=== PATIENT | male | born 1970 | race Caucasian/White ===

== ENCOUNTER 2023-06-12 08:14 | Outpatient (CLI) | payer OTHER, SELFPAY | END 2023-06-12 08:15 | disposition home or self-care (01) | PROVIDERS: PCP Family Medicine; Visit Provider Nurse Practitioner Family | DX: E11.621 Type 2 diabetes mellitus with foot ulcer (principal); L97.526 Non-pressure chronic ulcer of other part of left foot with bone involvement without evidence of necrosis; E66.01 Morbid (severe) obesity due to excess calories; Z68.43 Body mass index [BMI] 50.0-59.9, adult; Z79.52 Long term (current) use of systemic steroids; F17.200 Nicotine dependence, unspecified, uncomplicated; Z71.6 Tobacco abuse counseling; Z79.4 Long term (current) use of insulin | CPT/HCPCS: 11043; 11046; 87070; 87186; 99203 ==

== ENCOUNTER 2023-06-19 09:10 | Outpatient (CLI) | payer OTHER, SELFPAY | END 2023-06-19 09:11 | disposition home or self-care (01) | LOC: WOUND 09:12 | PROVIDERS: PCP Family Medicine; Visit Provider Nurse Practitioner Family | DX: E11.621 Type 2 diabetes mellitus with foot ulcer (principal); L97.526 Non-pressure chronic ulcer of other part of left foot with bone involvement without evidence of necrosis; E11.622 Type 2 diabetes mellitus with other skin ulcer; L97.226 Non-pressure chronic ulcer of left calf with bone involvement without evidence of necrosis; T23.322A Burn of third degree of single left finger (nail) except thumb, initial encounter; X08.8XXA Exposure to other specified smoke, fire and flames, initial encounter; F17.290 Nicotine dependence, other tobacco product, uncomplicated; Z79.4 Long term (current) use of insulin; Z79.84 Long term (current) use of oral hypoglycemic drugs | CPT/HCPCS: 11043; 16020; 99212 ==

== ENCOUNTER 2023-07-02 14:10 | Outpatient (CLI) | payer OTHER, SELFPAY | END 2023-07-02 14:11 | disposition home or self-care (01) | LOC: WOUND 14:10 | PROVIDERS: PCP Family Medicine; Visit Provider Nurse Practitioner Family | DX: E11.621 Type 2 diabetes mellitus with foot ulcer (principal); L97.526 Non-pressure chronic ulcer of other part of left foot with bone involvement without evidence of necrosis; L97.222 Non-pressure chronic ulcer of left calf with fat layer exposed; T23.022A Burn of unspecified degree of single left finger (nail) except thumb, initial encounter; Z79.4 Long term (current) use of insulin; Z79.84 Long term (current) use of oral hypoglycemic drugs | CPT/HCPCS: 11043; 99212 ==

== ENCOUNTER 2023-07-02 15:31 | Emergency (ER) | payer OTHER, SELFPAY ==
[2023-07-02 15:47] VITALS: BP 130/72; PULSE 73; RESP 20; TEMP 37.3; O2SAT 90; BMI 56.5
[2023-07-02 16:14] LABS: Lactate Sepsis w/Reflex* 2.5 mmol/L (0.5-1.9)
[2023-07-02] MEDS: MORPHINE 4 MG/ML INJ IVP (16:15)
[2023-07-02 16:17] LABS: Basophils Absolute Auto 0.01 K/uL (0.00-0.30); Basophils Percent Auto 0.1 % (0.0-3.0); Eosinophils Absolute Auto 0.09 K/uL (0.00-0.50); Eosinophils Percent Auto 0.9 % (0.0-7.0); Hematocrit 32.3 % (37.0-53.0); Hemoglobin* 9.8 gm/dL (13.5-17.5); Immature Granulocytes Abs Auto 0.08 K/uL (0.00-0.30); Immature Granulocytes Pct Auto 0.8 %; Lymphocytes Percent Auto 10.8 % (20-44); Mean Corpuscular HGB Conc 30 gm/dL (32-36); Mean Corpuscular Hemoglobin 28 pg (26-34); Mean Corpuscular Volume 93 fL (80-100); Monocytes Percent Auto 4.8 % (0.0-11.0); Neutrophils Percent Auto 82.6 % (42.0-72.0); Platelet Count* 269 K/uL (140-440); RDW Coefficient of Variation % 16.5 % (11.5-15.5); Red Blood Count 3.48 m/uL (4.30-5.90); White Blood Count* 10.34 K/uL (4.50-11.00)
[2023-07-02 16:18] LABS: Slide Review Reflex No
[2023-07-02 16:30] VITALS: O2SAT 94
--- NOTE | 2023-07-02 16:30 | ED.NURSE ---
Patient oxygen saturations at 87% on room air, notified he uses oxygen at home. Applied 2 L NC and saturations increased to 94%. Morphine administered for pain, has had before with no concerns. Patient stated he has a spinal stimulator and cannot go into an MRI. Updated provider and imaging department.
[2023-07-02 16:31] VITALS: O2SAT 94
[2023-07-02] MEDS: ACETAMINOPHEN 500 MG TABLET 1000 MG PO (16:42)
[2023-07-02 16:46] LABS: Chloride* 92 mmol/L (96-114)
[2023-07-02 16:47] LABS: Potassium* 3.9 mmol/L (3.6-5.1); Sodium* 134 mmol/L (135-149)
[2023-07-02 16:49] LABS: Creatinine* 0.7 mg/dL (0.5-1.5); Est. Creatinine Clearance* 112.66; Estimated Glomerular Filt Rate 112 ml/min
[2023-07-02 16:50] LABS: Anion Gap 6 mEq/L (7-15); Blood Urea Nitrogen* 9 mg/dL (7-30); Carbon Dioxide* 36 mmol/L (20-32)
[2023-07-02 16:51] LABS: Calcium* 9.2 mg/dL (8.4-10.6); Glucose* 173 mg/dL (60-115)
[2023-07-02 17:05] LABS: C Reactive Protein* 19.7 mg/dL (0.5-1.0)
[2023-07-02 17:08] LABS: Procalcitonin* 0.17 ng/mL (<0.50)
--- NOTE | 2023-07-02 17:13 | ED_ITS ---
HPI - General Adult General Date Seen: 07/02/23 Chief complaint: Skin/Abscess/Foreign Body Stated complaint: Infected wounds on feet Time Seen by Provider: 07/02/23 15:34 Source: patient and old records reviewed Mode of arrival: ambulatory Limitations: no limitations History of Present Illness HPI narrative: Patient is a 53-year-old with poor medical management who is sent here from wound clinic. He had initially been seen there after referral from Podiatry on June 12 for a chronic wound of his left foot. He was initially on Augmentin, had ostensibly been switched to Bactrim but it is unclear whether that was ever started. Initially when he was seen there was matted debris including CT for on the wound. He has not followed through with good wound care, dressing changes, etcetera nor has he followed through with clinic visits or MRI. He presented to Wound Clinic today and was noted to have worsening appearance of wound with foul odor, wet gangrene and worsening tracking of the wound. They talked with our rope machine setter here who recommended transfer to a tertiary facility for operative debridement and possible amputation. He complains of pain in the left leg, he refused wheelchair transfer from the wound clinic up to the ER, requiring med of and transport so that he could ?smoke a joint between wound clinic and the ER. He is on chronic narcotics. He denies systemic complaints such as fevers. He has chronic pain in both legs secondary to neuropathy but says that the left leg is worse. His only request here is for pain medication. Related Data Home Medications Medication Instructions Recorded Confirmed albuterol sulfate 90 mcg/actuation 2 puff inhalation Q6H PRN dyspnea 07/02/23 07/02/23 aerosol inhaler duloxetine 60 mg capsule,delayed 60 mg PO DAILY 07/02/23 07/02/23 release insulin glargine 100 unit/mL (3 40 unit subcut QPM 07/02/23 07/02/23 mL) subcutaneous pen (Lantus Solostar U-100 Insulin) insulin lispro 100 unit/mL 12 unit subcut 3XD diabetes 07/02/23 07/02/23 subcutaneous pen mellitus type 2 magnesium oxide 400 mg (241.3 mg 400 mg PO DAILY 07/02/23 07/02/23 magnesium) tablet metformin 1,000 mg tablet 1,000 mg PO BID 07/02/23 07/02/23 metoprolol succinate 50 mg 50 mg PO DAILY blood pressure 07/02/23 07/02/23 tablet,extended release 24 hr omeprazole 40 mg capsule,delayed 40 mg PO DAILY 07/02/23 07/02/23 release oxycodone-acetaminophen 5 mg-325 1 tab PO PRN 07/02/23 mg tablet prednisone 10 mg tablet 10 mg PO DAILY 07/02/23 07/02/23 pregabalin 200 mg capsule 200 mg PO 3XD 07/02/23 07/02/23 quetiapine 200 mg tablet 200 mg PO QPM 07/02/23 07/02/23 quetiapine 25 mg tablet 25 mg PO BID PRN anxiety 07/02/23 07/02/23 ropinirole 1 mg tablet 1 mg PO 3XD restless legs 07/02/23 07/02/23 sodium hypochlorite 0.25 % Q1D PRN 07/02/23 solution (Dakin's Solution) spironolactone 25 mg tablet 25 mg PO QAM 07/02/23 07/02/23 tizanidine 4 mg tablet 4 mg PO 3XD PRN pain 07/02/23 07/02/23 torsemide 10 mg tablet 10 mg PO BID 07/02/23 07/02/23 Allergies Allergy/AdvReac Type Severity Reaction Status Date / Time ketorolac [From Toradol] Allergy Severe Anaphylaxis Verified 07/02/23 16:02 lithium Allergy Severe Anaphylaxis Verified 07/02/23 16:02 tramadol Allergy Severe Anaphylaxis Verified 07/02/23 16:02 ibuprofen AdvReac Mild itching Verified 07/02/23 16:02 Review of Systems Status of ROS: Reports: 6 or more systems reviewed and unremarkable except as noted in History and below [facility] Social History Smoking Status: Current every day smoker Non-prescribed substance use: denies use Exam Narrative: Exam Narrative: Vital signs as noted above. In general, an alert, nontoxic male. Overweight. Head: Normocephalic, atraumatic. Eyes: Pupils are equal reactive. Extraocular movements are full. Conjunctivae are normal. ENT: Mucous membranes are moist. Neck: Supple without lymphadenopathy. Heart: Regular rate and rhythm. No murmur or rub. Lungs: Clear bilaterally. No increased work of breathing, crackles or wheezes. Abdomen: Obese, nontender. Extremities: Venous stasis bilaterally. On the left, two deep chronic wounds on the base of the foot. There is some purulent drainage, there is diffuse erythema to the foot, diffuse erythema to the leg although some of this may be related to venous stasis. There is warmth noted to bilateral legs. I did not probe the wounds personally. He has brisk capillary refill in bilateral feet and has palpable pulses dorsalis pedis bilaterally. Neurologic: Patient is alert and oriented to person and place. Speech is fluent. Face is symmetric. Moves all extremities equally. Affect: Normal. Skin: Warm and dry. Well perfused. Const: Vital Signs, click to edit/add: Vital Signs - 24 hr 07/02/23 15:47 07/02/23 16:30 07/02/23 16:31 Temperature 99.1 F Pulse Rate [Pulse Oximeter] 73 Respiratory Rate 20 Blood Pressure [Ri ght Forearm] 130/72 Pulse Oximetry 90 94 94 Oxygen Delivery Me thod Room Air Nasal Cannula Nasal Cannula Oxygen Flow Rate 2 2 Documenting provider has reviewed patient's vital signs: yes Course Course Hospital Course: An IV was established. I did give him 4 mg of IV morphine, he continued to complain of pain, will give him 5 mg of oral oxycodone. He lists allergies to ibuprofen, Toradol, tramadol. He states these cause anaphylaxis. Labs show white blood cell count of 10.3, hemoglobin of 9.8. Metabolic panel shows a sodium of 134, normal potassium. Chloride 92, CO2 of 36, BUN 9, creatinine 0.7. Blood sugar is 173. Lactate is 2.5. CRP elevated at 19.7. Procalcitonin 0.17. I had initially planned to do an MRI, he has the spinal stimulator, unclear whether not we are able to do an MRI with our machine. Dr. Saucedo recommended transfer to [facility], so I think it makes more sense just to wait and let them do an MRI their facility to evaluate for possible osteomyelitis. I had talked with [facility], blood cultures and wound culture were done, I had ordered Zosyn and vanco, patient was accepted at [facility]. However, he expressed displeasure with having to sit and wait here. He asked if he could go up to [facility] directly. I discussed with him he would need to go to the ER there. He asked if he could go home and ?get his things in order before going to [facility]. Again discussed that if he left here he would need to go to [facility] ER or come back here, that he could not go straight to [facility] in be admitted. He did come back in, he got his Zosyn, but before getting his vanco he left. He says he will maybe go to [facility] ER tomorrow ?if he can. I have reviewed with him that his labs suggest that he may have a blood stream infection, that he could certainly have infection in the bone, that delay in care will most certainly increase the odds that he loses his limb, and that this infection may be life- threatening. He expressed to me that the pain medications I was giving were not adequate, that he could go down the road and get cocaine, that the oxycodone I was giving him was not enough of a ?democrat. He signed out AMA. Vital Signs Vital signs: Initial Vital Signs Temperature 99.1 F 07/02/23 15:47 Temperature Source Temporal Artery Scan 07/02/23 15:47 Pulse Rate 73 07/02/23 15:47 Pulse Rhythm Regular 07/02/23 15:47 Pulse Strength 3+ Normal 07/02/23 15:47 Respiratory Rate 20 07/02/23 15:47 Blood Pressure 130/72 07/02/23 15:47 Blood Pressure Mean 91 07/02/23 15:47 Blood Pressure Position Semi-Fowlers 07/02/23 15:47 Pulse Oximetry 90 07/02/23 15:47 Oxygen Delivery Method Room Air 07/02/23 15:47 Vital Signs Temperature 99.1 F 07/02/23 15:47 Pulse Rate 73 07/02/23 15:47 Respiratory Rate 20 07/02/23 15:47 Blood Pressure 130/72 07/02/23 15:47 Pulse Oximetry 90 07/02/23 15:47 Oxygen Delivery Method Room Air 07/02/23 15:47 Temperature 99.1 F 07/02/23 15:47 Pulse Rate 73 07/02/23 15:47 Respiratory Rate 20 07/02/23 15:47 Blood Pressure 130/72 07/02/23 15:47 Pulse Oximetry 94 07/02/23 16:31 Oxygen Delivery Method Nasal Cannula 07/02/23 16:31 Oxygen Flow Rate 2 07/02/23 16:31 Medical Decision Making Lab Data Labs: Lab Results 07/02/23 Range/Units 16:08 WBC 10.34 (4.50-11.00) K/uL RBC 3.48 L (4.30-5.90) m/uL Hgb 9.8 L (13.5-17.5) gm/dL Hct 32.3 L (37.0-53.0) % MCV 93 (80-100) fL MCH 28 (26-34) pg MCHC 30 L (32-36) gm/dL RDW Coeff of Kylee 16.5 H (11.5-15.5) % Plt Count 269 (140-440) K/uL Neut % (Auto) 82.6 H (42.0-72.0) % Lymph % (Auto) 10.8 L (20-44) % Sed[place]wick % (Auto) 4.8 (0.0-11.0) % Eos % (Auto) 0.9 (0.0-7.0) % Baso % (Auto) 0.1 (0.0-3.0) % Neut # (Auto) 8.50 H (1.7-7.0) K/uL Lymph # (Auto) 1.10 (0.90-2.90) K/uL [place] # (Auto) 0.50 (0.00-0.90) K/UL Eos # (Auto) 0.09 (0.00-0.50) K/uL Baso # (Auto) 0.01 (0.00-0.30) K/uL Abs Immat Gran (auto) 0.08 (0.00-0.30) K/uL Imm/Tot Granulo (auto) 0.8 % Sodium 134 L (135-149) mmol/L Potassium 3.9 (3.6-5.1) mmol/L Chloride 92 L (96-114) mmol/L Carbon Dioxide 36 H (20-32) mmol/L Anion Gap 6 L (7-15) mEq/L BUN 9 (7-30) mg/dL Creatinine 0.7 (0.5-1.5) mg/dL Estimated Creat Clear 112.66 Estimated GFR 112 ml/min Glucose 173 H (60-115) mg/dL Lactate 2.5 H (0.5-1.9) mmol/L Calcium 9.2 (8.4-10.6) mg/dL C-Reactive Protein 19.7 H (0.5-1.0) mg/dL Procalcitonin 0.17 (<0.50) ng/mL Discharge Plan Discharge Prescriptions: No Action quetiapine 25 mg tablet 25 mg PO BID PRN (Reason: anxiety) prednisone 10 mg tablet 10 mg PO DAILY ropinirole 1 mg tablet 1 mg PO 3XD tizanidine 4 mg tablet 4 mg PO 3XD PRN (Reason: pain) metoprolol succinate 50 mg tablet extended release 24 hr 50 mg PO DAILY quetiapine 200 mg tablet 200 mg PO QPM torsemide 10 mg tablet 10 mg PO BID omeprazole 40 mg capsule,delayed release(DR/EC) 40 mg PO DAILY spironolactone 25 mg tablet 25 mg PO QAM oxycodone-acetaminophen 5-325 mg tablet 1 tab PO PRN magnesium oxide 400 mg (241.3 mg magnesium) tablet 400 mg PO DAILY metformin 1,000 mg tablet 1,000 mg PO BID albuterol sulfate 90 mcg/actuation HFA aerosol inhaler 2 puff INHALATION Q6H PRN (Reason: dyspnea) Dakin's Solution 0.25 % solution Q1D PRN insulin lispro 100 unit/mL insulin pen 12 unit subcut 3XD duloxetine 60 mg capsule,delayed release(DR/EC) 60 mg PO DAILY pregabalin 200 mg capsule 200 mg PO 3XD insulin glargine [Lantus Solostar U-100 Insulin] 100 unit/mL (3 mL) insulin pen 40 unit subcut QPM Follow Up/Referrals: Pee Day MD [Primary Care Provider] -
[2023-07-02] MEDS: OXYCODONE 5 MG TABLET PO (17:18)
[2023-07-02] MEDS: PIPERACILLIN/TAZOBACTAM 3.375 GM in 0.9 % SODIUM CHLORIDE Mini-bag 100 ML IVPB (18:06)
--- NOTE | 2023-07-02 18:07 | ED.NURSE ---
After a couple phone calls, patient has decided at this time to leave AMA after the antibiotics are completed. Report was given to Gerhard Hines. Will plan to hold off at this time on calling dispatch.
--- NOTE | 2023-07-02 18:22 | ED.NURSE ---
Wound dressing completed, placed telfa on wound, ABD pad, and secured in place with kerlix.
--- NOTE | 2023-07-02 18:42 | ED.NURSE ---
was not going to stay. had called a taxi from [place]. would not stay to get the vancomycin. dr trent did speak to him. AMA paper signed. stated You keep lying to me. I am going to rip out this iv if you do not take it out right now. was accepted to get transferred to [facility]. refused all further cares.
--- NOTE | 2023-07-02 18:47 | ED.NURSE ---
Updated [facility] at [phone] that patient has decided to not pursue the transfer at this time and to not hold his bed.
--- NOTE | 2023-07-03 14:33 | ED.NURSE ---
was called due to positive blood cultures. was told to seek medical attention as soon as possible. was told that hopefully he is at [facility] as he was accepted there yesterday. Dr Flores was informed of situation also. this was left as a message on his phone as he did not answer the call but had asked for medical providers to leave a detailed message.
--- NOTE | 2023-07-05 18:01 | ED.NURSE ---
called the patient at home and left a message to return to the ED per Dr. Felix KWOK. Stressed with patient to return for antibiotics per culture needing to be treated.
== END 2023-07-02 18:43 | disposition home or self-care (01) ==
PROVIDERS: Emergency Provider Emergency Medicine; PCP Family Medicine
DX: E11.52 Type 2 diabetes mellitus with diabetic peripheral angiopathy with gangrene (principal); I96 Gangrene, not elsewhere classified; Z53.29 Procedure and treatment not carried out because of patient's decision for other reasons
CPT/HCPCS: 36415; 80048; 83605; 84145; 85025; 86140; 87040; 87070; 87077; 87186; 96365; 96375; 99284; A9270; J2270; J2543

== ENCOUNTER 2023-08-14 13:27 | Outpatient (CLI) | payer OTHER, SELFPAY | END 2023-08-14 13:28 | disposition home or self-care (01) | LOC: WOUND 13:27 | PROVIDERS: PCP Family Medicine; Visit Provider Nurse Practitioner Family | DX: T81.31XA Disruption of external operation (surgical) wound, not elsewhere classified, initial encounter (principal); E11.621 Type 2 diabetes mellitus with foot ulcer; L97.528 Non-pressure chronic ulcer of other part of left foot with other specified severity; Z79.4 Long term (current) use of insulin; Z79.84 Long term (current) use of oral hypoglycemic drugs | CPT/HCPCS: 97597 ==